=== PATIENT | male | born 1950 | race American Indian/Alaskan Native ===

== ENCOUNTER 2020-03-07 16:53 | Emergency (ER) | payer MEDICARE ==
[2020-03-07 17:20] VITALS: BP 105/55
[2020-03-07] MEDS ORDERED: DIPHtheria,PERTUSSIS(ACELL),TETANUS VACCINE/PF 0.5 ML VIAL IM ONE (17:46)
--- NOTE | 2020-03-07 17:50 | Emergency Department Report ---
ED General Adult HPI - General Chief complaint: Skin Rash Stated complaint: RT ANKLE INJURY/RASH Time Seen by Provider: 03/07/20 17:36 Source: patient Mode of arrival: Ambulatory Limitations: No Limitations - History of Present Illness Initial comments: Patient is a 69-year-old male who presents emergency room with complaints of an abrasion to his right ankle that occurred 4 days ago. Patient states that he was getting into his truck and scraped his ankle against the truck. He states he has noticed a small amount of drainage. He denies any fever, vomiting, diarrhea, chills, ankle pain, difficulty walking. Patient states that he also presents due to a diffuse rash that began 4 days ago. He believes he may have used a new detergent. He denies any new soaps, lotions, medications, antibiotics. He states that it does itch. He denies any difficulty swallowing, facial swelling, difficulty breathing. He denies any past medical history. He denies any daily medications. No allergies to medications. - Related Data Previous Rx's Medication Instructions Recorded Last Taken Type Hydrocortisone 0.5% 1 applicatio TP TID #1 tube 03/07/20 Unknown Rx [Hydrocortisone 0.5% CREAM] Mupirocin [Bactroban 2% OINT] 1 applic TP TID #1 tube 03/07/20 Unknown Rx Prednisone [predniSONE 10 mg 10 mg PO .TAPER #1 tab.ds.pk 03/07/20 Unknown Rx (6-Day Pack, 21 Tabs)] Sulfamethoxazole/Trimethoprim 1 each PO BID 7 Days #14 tablet 03/07/20 Unknown Rx [Bactrim DS TAB] diphenhydrAMINE [Benadryl CAP] 25 mg PO Q8HR PRN #14 capsule 03/07/20 Unknown Rx Allergies Allergy/AdvReac Type Severity Reaction Status Date / Time No Known Allergies Allergy Unverified 03/07/20 17:15 ED Review of Systems ROS: Stated complaint: RT ANKLE INJURY/RASH Other details as noted in HPI Comment: All other systems reviewed and negative ED Past Medical Hx - Past Medical History Previous Medical History?: No - Surgical History Past Surgical History?: Yes Additional Surgical History: Left groin fatty tissue removed - Social History Smoking Status: Never Smoker Substance Use Type: None - Medications Home Medications: Home Medications Medication Instructions Recorded Confirmed Last Taken Type Hydrocortisone 0.5% 1 applicatio TP TID #1 tube 03/07/20 Unknown Rx [Hydrocortisone 0.5% CREAM] Mupirocin [Bactroban 2% OINT] 1 applic TP TID #1 tube 03/07/20 Unknown Rx Prednisone [predniSONE 10 mg 10 mg PO .TAPER #1 tab.ds.pk 03/07/20 Unknown Rx (6-Day Pack, 21 Tabs)] Sulfamethoxazole/Trimethoprim 1 each PO BID 7 Days #14 tablet 03/07/20 Unknown Rx [Bactrim DS TAB] diphenhydrAMINE [Benadryl CAP] 25 mg PO Q8HR PRN #14 capsule 03/07/20 Unknown Rx ED Physical Exam - General Limitations: No Limitations General appearance: alert, in no apparent distress - Head Head exam: Present: atraumatic, normocephalic - Eye Eye exam: Present: normal appearance - ENT ENT exam: Present: mucous membranes moist - Respiratory Respiratory exam: Absent: respiratory distress, accessory muscle use - Neurological Exam Neurological exam: Present: alert, oriented X3 - Psychiatric Psychiatric exam: Present: normal affect, normal mood - Skin Skin exam: Present: warm, dry, urticaria (diffusely, no blisters, no crusting, no skin denuding, no necrosis, there is a 4 cm abrasion present to the right medial ankle with small amount of serous fluid and mild surrounding erythema, no fluctuance or purulent drainage, no necrosis, FROM of the LLE, neurovascularly intact) ED Course Vital Signs 03/07/20 17:14 Temperature 99.2 F Pulse Rate 91 H Respiratory 20 Rate Blood Pressure 105/55 O2 Sat by Pulse 98 Oximetry ED Medical Decision Making - Medical Decision Making Patient is a 69-year-old male who presents emergency room with complaints of an abrasion to his right ankle that occurred 4 days ago. Patient states that he was getting into his truck and scraped his ankle against the truck. He states he has noticed a small amount of drainage. He denies any fever, vomiting, diarrhea, chills, ankle pain, difficulty walking. Patient states that he also presents due to a diffuse rash that began 4 days ago. He believes he may have used a new detergent. He denies any new soaps, lotions, medications, antibiotics. He states that it does itch. He denies any difficulty swallowing, facial swelling, difficulty breathing. He denies any past medical history. He denies any daily medications. No allergies to medications. vitals are normal. on exam: diffusely, no blisters, no crusting, no skin denuding, no necrosis, there is a 4 cm abrasion present to the right medial ankle with small amount of serous fluid and mild surrounding erythema, no fluctuance or purulent drainage, no necrosis, FROM of the LLE, neurovascularly intact. Examination appears consistent with urticaria which is likely related to allergic reaction. Examination also appears consistent with mild cellulitis, no abscess formation at this time or significant cellulitis requiring admission. Discussed the importance of reexamination within 3 days and discussed very strict return precautions with patient. Advised patient Please use medication as prescribed. Please use mupirocin on the ankle. Please use hydrocortisone on the rest of the body regarding the rash. Follow-up with a primary care doctor in the next 3 days for reexamination. Return to emergency room immediately for any new or worsening symptoms. Critical care attestation.: If time is entered above; I have spent that time in minutes in the direct care of this critically ill patient, excluding procedure time. ED Disposition Clinical Impression: Abrasion Allergic reaction Qualifiers: Encounter type: initial encounter Qualified Code(s): T78.40XA - Allergy, unspecified, initial encounter Cellulitis Qualifiers: Site of cellulitis: extremity Site of cellulitis of extremity: lower extremity Laterality: right Qualified Code(s): L03.115 - Cellulitis of right lower limb Disposition: DC-01 TO HOME OR SELFCARE Is pt being admited?: No Does the pt Need Aspirin: No Condition: Stable Instructions: Cellulitis, Adult, Allergies, Adult Additional Instructions: Please use medication as prescribed. Please use mupirocin on the ankle. Please use hydrocortisone on the rest of the body regarding the rash. Follow-up with a primary care doctor in the next 3 days for reexamination. Return to emergency room immediately for any new or worsening symptoms. Prescriptions: Sulfamethoxazole/Trimethoprim [Bactrim DS TAB] 1 each PO BID 7 Days #14 tablet Mupirocin [Bactroban 2% OINT] 1 applic TP TID #1 tube diphenhydrAMINE [Benadryl CAP] 25 mg PO Q8HR PRN #14 capsule PRN Reason: itching Hydrocortisone 0.5% [Hydrocortisone 0.5% CREAM] 1 applicatio TP TID #1 tube Prednisone [predniSONE 10 mg (6-Day Pack, 21 Tabs)] 10 mg PO .TAPER #1 tab.ds.pk Referrals: PRIMARY CARE, [Primary Care Provider] - 2-3 Days ERUM MELCHOR MD [Staff Physician] - 2-3 Days [facility] [Provider Group] - 2-3 Days Time of Disposition: 17:50 Print Language: SAMOAN
== END 2020-03-07 18:06 | disposition home or self-care (01) ==
LOC: ED 16:53
DX: S90.511A Abrasion, right ankle, initial encounter (principal); T78.40XA Allergy, unspecified, initial encounter; L03.116 Cellulitis of left lower limb; Z98.890 Other specified postprocedural states; Z79.899 Other long term (current) drug therapy; X58.XXXA Exposure to other specified factors, initial encounter; Y93.89 Activity, other specified; Y92.89 Other specified places as the place of occurrence of the external cause; Y99.8 Other external cause status
CPT/HCPCS: 90471; 90715; 99282

== ENCOUNTER 2020-03-11 12:53 | Emergency (ER) | payer MEDICARE ==
[2020-03-11] MEDS ORDERED: diphenhydrAMINE 50 MG/ML VIAL IV ONE (13:12)
[2020-03-11] MEDS ORDERED: dexAMETHasone 20 MG/5 ML VIAL IV ONE (13:12)
[2020-03-11] MEDS ORDERED: SODIUM CHLORIDE 0.9% 1000 ML 1,000 ML IV ONE (13:12)
[2020-03-11] MEDS ORDERED: FAMOTIDINE 20 MG/2 ML INJ IV ONE (13:12)
--- NOTE | 2020-03-11 14:25 | Emergency Department Report ---
ED Allergic Reaction HPI - General Chief complaint: Allergic Reaction Stated complaint: ALLERGIC REACTION Time Seen by Provider: 03/11/20 13:11 Source: patient Mode of arrival: Ambulatory Limitations: No Limitations - History of Present Illness Initial Comments: This is a 69-year-old male nontoxic, well nourished in appearance, no acute signs of distress presents to the ED with c/o of hives and periorbital swelling that started yesterday. Patient states he started taking Bactrim for the first time and noticed the symptoms and got worse this morning. Patient states it is itching and redness. Patient denies any drooling or hoarseness. Patient denies any trauma. She denies any fever, chills, nausea, vomiting, chest pain, shortness of breath, headache, stiff neck, numbness or tingling. Patient patient denies any drug allergies. MD Complaint: allergic reaction, hives, facial swelling -: Last night Exposure: medication Symptoms: rash, itching, facial swelling. denies: lip swelling, difficulty swallowing, difficulty breathing, orolingual swelling, hoarseness, syncopy, dizziness, nausea, vomiting, abdominal pain Severity: mild Treatment Prior to Arrival: none Previous Allergy History: none - Related Data Previous Rx's Medication Instructions Recorded Last Taken Type Hydrocortisone 0.5% 1 applicatio TP TID #1 tube 03/07/20 Unknown Rx [Hydrocortisone 0.5% CREAM] Mupirocin [Bactroban 2% OINT] 1 applic TP TID #1 tube 03/07/20 Unknown Rx Prednisone [predniSONE 10 mg 10 mg PO .TAPER #1 tab.ds.pk 03/07/20 Unknown Rx (6-Day Pack, 21 Tabs)] Sulfamethoxazole/Trimethoprim 1 each PO BID 7 Days #14 tablet 03/07/20 Unknown Rx [Bactrim DS TAB] diphenhydrAMINE [Benadryl CAP] 25 mg PO Q8HR PRN #14 capsule 03/07/20 Unknown Rx Clindamycin [Clindamycin CAP] 300 mg PO Q8H #21 cap 03/11/20 Unknown Rx Prednisone [predniSONE 10 mg 10 mg PO .TAPER #1 tab.ds.pk 03/11/20 Unknown Rx (6-Day Pack, 21 Tabs)] Allergies Allergy/AdvReac Type Severity Reaction Status Date / Time sulfamethoxazole Allergy Swelling Verified 03/11/20 14:38 [From Bactrim] trimethoprim [From Bactrim] Allergy Swelling Verified 03/11/20 14:38 ED Review of Systems ROS: Stated complaint: ALLERGIC REACTION Other details as noted in HPI Comment: All other systems reviewed and negative Constitutional: denies: chills, fever Eyes: denies: eye pain, eye discharge, vision change ENT: denies: ear pain, throat pain Respiratory: denies: cough, shortness of breath, wheezing Cardiovascular: denies: chest pain, palpitations Endocrine: no symptoms reported Gastrointestinal: denies: abdominal pain, nausea, diarrhea Genitourinary: denies: urgency, dysuria Musculoskeletal: denies: back pain, joint swelling, arthralgia Skin: rash. denies: lesions Neurological: denies: headache, weakness, paresthesias Psychiatric: denies: anxiety, depression Hematological/Lymphatic: denies: easy bleeding, easy bruising ED Past Medical Hx - Past Medical History Previous Medical History?: No - Surgical History Past Surgical History?: No Additional Surgical History: Left groin fatty tissue removed - Social History Smoking Status: Never Smoker Substance Use Type: None - Medications Home Medications: Home Medications Medication Instructions Recorded Confirmed Last Taken Type Hydrocortisone 0.5% 1 applicatio TP TID #1 tube 03/07/20 Unknown Rx [Hydrocortisone 0.5% CREAM] Mupirocin [Bactroban 2% OINT] 1 applic TP TID #1 tube 03/07/20 Unknown Rx Prednisone [predniSONE 10 mg 10 mg PO .TAPER #1 tab.ds.pk 03/07/20 Unknown Rx (6-Day Pack, 21 Tabs)] Sulfamethoxazole/Trimethoprim 1 each PO BID 7 Days #14 tablet 03/07/20 Unknown Rx [Bactrim DS TAB] diphenhydrAMINE [Benadryl CAP] 25 mg PO Q8HR PRN #14 capsule 03/07/20 Unknown Rx Clindamycin [Clindamycin CAP] 300 mg PO Q8H #21 cap 03/11/20 Unknown Rx Prednisone [predniSONE 10 mg 10 mg PO .TAPER #1 tab.ds.pk 03/11/20 Unknown Rx (6-Day Pack, 21 Tabs)] ED Physical Exam - General Limitations: No Limitations General appearance: alert, in no apparent distress - Head Head exam: Present: atraumatic, normocephalic - Eye Eye exam: Present: normal appearance, PERRL, EOMI, periorbital swelling (Right side), other (No cellulitis. No redness to touch or tenderness.) Pupils: Present: normal accommodation - ENT ENT exam: Present: normal exam, normal orophraynx, other (Uvula midline. Airway intact. No angioedema noted on exam to oropharynx.) - Neck Neck exam: Present: normal inspection, full ROM. Absent: tenderness, meningismus, lymphadenopathy - Respiratory Respiratory exam: Present: normal lung sounds bilaterally. Absent: respiratory distress, wheezes, rales, rhonchi, stridor, chest wall tenderness, accessory muscle use, decreased breath sounds, prolonged expiratory - Cardiovascular Cardiovascular Exam: Present: regular rate, normal rhythm, normal heart sounds. Absent: irregular rhythm, systolic murmur, diastolic murmur, rubs, gallop - Extremities Exam Extremities exam: Present: normal inspection, full ROM, normal capillary refill. Absent: tenderness - Back Exam Back exam: Present: normal inspection, full ROM - Neurological Exam Neurological exam: Present: alert, oriented X3, normal gait - Psychiatric Psychiatric exam: Present: normal affect, normal mood - Skin Skin exam: Present: warm, dry, intact, rash, urticaria (no blisters, no crusting, no skin denuding). Absent: cyanosis, diaphoretic, erythema, vesicles, petechiae, pallor, abrasion, ecchymosis ED Course Vital Signs 03/11/20 03/11/20 03/11/20 13:04 14:54 14:55 Temperature 99.5 F Pulse Rate 106 H 82 Respiratory 19 16 18 Rate Blood Pressure 123/79 Blood Pressure 148/90 [Right] O2 Sat by Pulse 97 97 97 Oximetry - Reevaluation(s) Reevaluation #1: 03/11/20 14:24 Patient is speaking in full sentences with no signs of distress noted. ED Medical Decision Making - Medical Decision Making This is a 69-year-old female that presents with allergic reaction. Patient is stable was examined by me. Patient's airway is intact. No hoarseness. No oropharynx swelling. Patient received 1 L normal saline, Benadryl, Decadron, and Pepcid in the ED IV. Patient has been monitored for at least 2 hours prior to discharge. Swelling has significantly decreased and rash as well. Patient was instructed not to operate any machinery after discharge due to possible drowsiness of Benadryl. Patient stated that a family member will drive patient home after discharge. Patient is discharged with prednisone and Benadryl. Patient was referred to Follow-up with a primary care doctor in 3-5 days or if symptoms worsen and continue return to emergency room as soon as possible. At time of discharge, the patient does not seem toxic or ill in appearance. No acute signs of distress noted. Patient agrees to discharge treatment plan of care. No further questions noted by the patient. Critical care attestation.: If time is entered above; I have spent that time in minutes in the direct care of this critically ill patient, excluding procedure time. ED Disposition Clinical Impression: Allergic reaction Qualifiers: Encounter type: initial encounter Qualified Code(s): T78.40XA - Allergy, unspecified, initial encounter Disposition: DC- TO HOME OR SELFCARE Is pt being admited?: No Does the pt Need Aspirin: No Condition: Stable Additional Instructions: Follow-up with a primary care doctor in 3-5 days or if symptoms worsen and continue return to emergency room as soon as possible. Stop taking Bactrim. I have changed your antibiotics to clindamycin. Prescriptions: Clindamycin [Clindamycin CAP] 300 mg PO Q8H #21 cap Prednisone [predniSONE 10 mg (6-Day Pack, 21 Tabs)] 10 mg PO .TAPER #1 tab.ds.pk Referrals: SOBEIDA SOLORZANO MD [Primary Care Provider] - 3-5 Days ERUM MELCHOR MD [Staff Physician] - 3-5 Days Time of Disposition: 15:19
[2020-03-11 14:55] VITALS: BP 148/90
== END 2020-03-11 15:57 | disposition home or self-care (01) ==
LOC: ED 12:53
DX: T78.40XA Allergy, unspecified, initial encounter (principal); Z98.890 Other specified postprocedural states; Z79.899 Other long term (current) drug therapy; Z88.8 Allergy status to other drugs, medicaments and biological substances; X58.XXXA Exposure to other specified factors, initial encounter
CPT/HCPCS: 96361; 96374; 96375; 99282; J1100; J1200; J7030

== ENCOUNTER 2020-05-16 12:31 | Emergency (ER) | payer MEDICARE ==
[2020-05-16 12:40] VITALS: BP 102/54
--- NOTE | 2020-05-16 13:02 | Emergency Department Report ---
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 He was initially seen in my department for this wound in February and advised to have an infectious process present and started on Bactrim DS which he discovered he had an unknown allergy. Medication was discontinued and he was started on clindamycin however was continued on them mupirocin. States he has been utilizing the mupirocin off and on at the completion of the clindamycin and since that time has been noticing some increased redness and occasional rash development around the wound site. He reports no fever, chills, sweats, no numbness, no tingling. Rash is becoming moist and scaly and dry with some discoloration and increased erythema and papules to the site -: Gradual, week(s) (10 weeks) Extremity Location: Right: Ankle Place: home Patient Tetanus UTD: Yes Associated Symptoms: none - Related Data Previous Rx's Medication Instructions Recorded Last Taken Type Hydrocortisone 0.5% 1 applicatio TP TID #1 tube 03/07/20 Unknown Rx [Hydrocortisone 0.5% CREAM] Mupirocin [Bactroban 2% OINT] 1 applic TP TID #1 tube 03/07/20 Unknown Rx Prednisone [predniSONE 10 mg 10 mg PO .TAPER #1 tab.ds.pk 03/07/20 Unknown Rx (6-Day Pack, 21 Tabs)] Sulfamethoxazole/Trimethoprim 1 each PO BID 7 Days #14 tablet 03/07/20 Unknown Rx [Bactrim DS TAB] diphenhydrAMINE [Benadryl CAP] 25 mg PO Q8HR PRN #14 capsule 03/07/20 Unknown Rx Clindamycin [Clindamycin CAP] 300 mg PO Q8H #21 cap 03/11/20 Unknown Rx Prednisone [predniSONE 10 mg 10 mg PO .TAPER #1 tab.ds.pk 03/11/20 Unknown Rx (6-Day Pack, 21 Tabs)] Chlorhexidine Gluconate [Hibiclens] 10 ml TP BID #240 liquid 05/16/20 Unknown Rx Ciclopirox 0.77% (Nf) [Loprox 1 applic TP BID #45 g 05/16/20 Unknown Rx 0.77% (Nf)] cephALEXin [Keflex] 500 mg PO Q8HR #30 capsule 05/16/20 Unknown Rx Allergies Allergy/AdvReac Type Severity Reaction Status Date / Time bacitracin Allergy Unknown Verified 05/16/20 12:41 sulfamethoxazole Allergy Swelling Verified 03/11/20 14:38 [From Bactrim] trimethoprim [From Bactrim] Allergy Swelling Verified 03/11/20 14:38 ED Review of Systems ROS: Stated complaint: ANKLE PAIN Other details as noted in HPI Comment: All other systems reviewed and negative ED Past Medical Hx - Surgical History Additional Surgical History: Left groin fatty tissue removed - Social History Smoking Status: Never Smoker Substance Use Type: None - Medications Home Medications: Home Medications Medication Instructions Recorded Confirmed Last Taken Type Hydrocortisone 0.5% 1 applicatio TP TID #1 tube 03/07/20 Unknown Rx [Hydrocortisone 0.5% CREAM] Mupirocin [Bactroban 2% OINT] 1 applic TP TID #1 tube 03/07/20 Unknown Rx Prednisone [predniSONE 10 mg 10 mg PO .TAPER #1 tab.ds.pk 03/07/20 Unknown Rx (6-Day Pack, 21 Tabs)] Sulfamethoxazole/Trimethoprim 1 each PO BID 7 Days #14 tablet 03/07/20 Unknown Rx [Bactrim DS TAB] diphenhydrAMINE [Benadryl CAP] 25 mg PO Q8HR PRN #14 capsule 03/07/20 Unknown Rx Clindamycin [Clindamycin CAP] 300 mg PO Q8H #21 cap 03/11/20 Unknown Rx Prednisone [predniSONE 10 mg 10 mg PO .TAPER #1 tab.ds.pk 03/11/20 Unknown Rx (6-Day Pack, 21 Tabs)] Chlorhexidine Gluconate [Hibiclens] 10 ml TP BID #240 liquid 05/16/20 Unknown Rx Ciclopirox 0.77% (Nf) [Loprox 1 applic TP BID #45 g 05/16/20 Unknown Rx 0.77% (Nf)] cephALEXin [Keflex] 500 mg PO Q8HR #30 capsule 05/16/20 Unknown Rx ED Physical Exam - General Limitations: No Limitations General appearance: alert, in no apparent distress - Head Head exam: Present: atraumatic, normocephalic - Eye Eye exam: Present: normal appearance - ENT ENT exam: Present: normal exam, mucous membranes moist - Neck Neck exam: Present: normal inspection - Respiratory Respiratory exam: Present: normal lung sounds bilaterally. Absent: respiratory distress - Cardiovascular Cardiovascular Exam: Present: regular rate, normal rhythm. Absent: systolic murmur, diastolic murmur, rubs, gallop - GI/Abdominal GI/Abdominal exam: Present: soft, normal bowel sounds - Rectal Rectal exam: Present: deferred - Extremities Exam Extremities exam: Present: normal inspection - Expanded Lower Extremity Exam Right Ankle exam: Present: erythema Neuro vascular tendon exam: Present: no vascular compromise 1 - Erythematous excoriated wound with some scaling and moisture due to the wrapping. 50 minutes papules creeping up above the ankle but no lymphangitis is noted. No pus drainage. Pulses 2+ capillary refills are brisk. Rash carries a fungal appearance with a suspect a secondary infectious - Back Exam Back exam: Present: normal inspection - Neurological Exam Neurological exam: Present: alert, oriented X3 - Psychiatric Psychiatric exam: Present: normal affect, normal mood - Skin Skin exam: Present: warm, dry, intact, normal color. Absent: rash ED Course Vital Signs 05/16/20 12:35 Temperature 98.4 F Pulse Rate 84 Respiratory 18 Rate Blood Pressure 102/54 O2 Sat by Pulse 100 Oximetry ED Medical Decision Making - Medical Decision Making 69-year-old [place] male with no reported medical history of any immunocompromise in condition or or diet diabetes. 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 He initially been started on Bactrim which he reported a systemic allergy to was advised to stop taking the Bactrim DS but continue with the ointment. He took a round of clindamycin but the wound has not yet resolved and presents emerge department today for repeat evaluation and suggestions as he has not been able to get into his primary care doctor. Critical care attestation.: If time is entered above; I have spent that time in minutes in the direct care of this critically ill patient, excluding procedure time. ED Disposition Clinical Impression: Leg wound, right Disposition: DC-01 TO HOME OR SELFCARE Is pt being admited?: No Does the pt Need Aspirin: No Condition: Stable Instructions: Wound Care, Adult Prescriptions: Chlorhexidine Gluconate [Hibiclens] 10 ml TP BID #240 liquid cephALEXin [Keflex] 500 mg PO Q8HR #30 capsule Ciclopirox 0.77% (Nf) [Loprox 0.77% (Nf)] 1 applic TP BID #45 g Referrals: [facility] [Provider Group] - 3-5 Days
== END 2020-05-16 13:14 | disposition home or self-care (01) ==
LOC: ED 12:31
DX: S80.912A Unspecified superficial injury of left knee, initial encounter (principal); Z79.899 Other long term (current) drug therapy; Z88.2 Allergy status to sulfonamides; Z88.8 Allergy status to other drugs, medicaments and biological substances; X58.XXXA Exposure to other specified factors, initial encounter; Y93.89 Activity, other specified; Y92.89 Other specified places as the place of occurrence of the external cause; Y99.8 Other external cause status
CPT/HCPCS: 99282